=== PATIENT | female | born 1980 | race Caucasian/White ===

== ENCOUNTER 2018-07-30 03:10 | Inpatient (IN) | payer OTHER ==
[~2018-07-30] VITALS: Ht 167.6 cm; Wt 113.9 kg
[2018-07-30] MEDS ORDERED: LR 1,000 ML IV SCH ×2 (03:42→21:46)
[2018-07-30] MEDS ORDERED: LR 500 ML IV ONE ×2 (03:42→15:34)
[2018-07-30] MEDS ORDERED: NALBUPHINE HCL 10 MG/ML AMP IVP PRN ×3 (03:45→22:45)
[2018-07-30 04:29] LABS: BASOPHILS % (AUTO) 0.2 % (0.0-2.0); EOSINOPHILS % (AUTO) 0.2 % (0.0-4.0); HEMATOCRIT 35.5 % (36-48); HEMOGLOBIN 11.8 g/dL (12.0-16.0); LYMPHOCYTES % (AUTO) 9.1 % (20.5-51.5); MEAN CORPUSCULAR HEMOGLOBIN 28 pg (27-31); MEAN CORPUSCULAR HGB CONC 33 % (32-36); MEAN CORPUSCULAR VOLUME 83 fL (79.0-98.0); MONOCYTES # (AUTO) 0.6 K/uL (0.0-1.0); MONOCYTES % (AUTO) 5.6 % (1.7-9.3); NEUTROPHILS # (AUTO) 9.2 K/uL (1.8-7.7); NEUTROPHILS % (AUTO) 84.9 % (40.0-70.0); PLATELET COUNT (AUTO) 158 K/uL (130-430); RED BLOOD CELL COUNT(AUTO) 4.26 MIL/uL (4.2-6.2); WHITE BLOOD COUNT (AUTO) 10.8 K/uL (4.8-10.8)
[2018-07-30] MEDS ORDERED: OXYTOCIN/0.9 % SODIUM CHLORIDE 1,000 ML IV SCH ×2 (07:37→08:15)
[2018-07-30] MEDS ORDERED: OXYTOCIN/0.9 % SODIUM CHLORIDE 1,000 ML IV ONE (08:09)
[2018-07-30] MEDS ORDERED: fentaNYL CITRATE/PF 100 MCG/2 ML AMP ONE ×2 (10:30→22:50)
[2018-07-30] MEDS ORDERED: ROPIVACAINE 0.2% 100 ML ONE (10:31)
[2018-07-30] MEDS ORDERED: TERBUTALINE SULFATE 1 MG/ML VIAL ONE (13:51)
[2018-07-30] MEDS ORDERED: FENT2mCg/mL-ROPIVA0.2%/NS EPID 100 ML EP SCH (15:45)
[2018-07-30] MEDS ORDERED: CEFAZOLIN 2 GM IVPB PREMIX 50 ML IV ONE (21:15)
[2018-07-30] MEDS ORDERED: ANUSOL 1 EA SUPP.RECT (PREPARATION H) RC PRN (22:00)
[2018-07-30] MEDS ORDERED: OXYCODONE/ACETAMINOPHEN 5-325 TABLET PO PRN (22:00)
[2018-07-30] MEDS ORDERED: MEPERIDINE HCL/PF 50 MG/ML AMP IVP PRN (22:00)
[2018-07-30] MEDS ORDERED: LANOLIN 7 GM OINT. TP PRN (22:00)
[2018-07-30] MEDS ORDERED: RHO(D) IMMUNE GLOBULIN/MALTOSE 1500 UNITS/1.3 ML (WINHRO) IM PRN (22:00)
[2018-07-30] MEDS ORDERED: BISACODYL 10 MG/SUPPOSITORY RC PRN (22:00)
[2018-07-30] MEDS ORDERED: MEASLES,MUMPS&RUBELLA VACC/PF 12500 UNIT/0.5 ML VIAL SUBQ PRN (22:00)
[2018-07-30 22:40] VITALS: BP_SYST 128
[2018-07-30] MEDS ORDERED: ONDANSETRON HCL 4 MG/2 ML VIAL IVP PRN (22:45)
[2018-07-30] MEDS ORDERED: KETOROLAC TROMETHAMINE 60 MG/2 ML VIAL IM PRN (22:45)
[2018-07-30] MEDS ORDERED: MORPHINE SULFATE 10MG/10ML PF AMP EP SCH (22:45)
[2018-07-30] MEDS ORDERED: NALOXONE HCL 0.4 MG/ML AMP (NARCAN) IVP PRN ×2 (22:45)
[2018-07-30] MEDS ORDERED: DIPHENHYDRAMINE INJ 50 MG/ML VIAL IVP PRN (22:45)
[2018-07-30] MEDS ORDERED: fentaNYL CITRATE/PF 100 MCG/2 ML AMP IVP PRN ×2 (22:45)
[2018-07-31] MEDS: CEFAZOLIN 1 GM IVPB PREMIX 50 ML IV SCH ×3 (04:00→16:08)
[2018-07-31] MEDS: SIMETHICONE 80 MG TAB.CHEW PO PRN ×2 (12:25→17:54)
[2018-07-31] MEDS: IBUPROFEN 800 MG TABLET PO PRN ×3 (12:26→23:39)
[2018-07-31] MEDS: SENNOSIDES/DOCUSATE SODIUM 1 TAB TABLET(SENOKOT-S) PO PRN ×2 (12:27→17:54)
[2018-07-31] MEDS: DOCUSATE SODIUM 100 MG CAPSULE PO PRN (17:53)
[2018-07-31] MEDS ORDERED: MORPHINE SULFATE 10MG/10ML PF AMP EP ONE (21:50)
[2018-07-31] MEDS ORDERED: LIDOCAINE 2%, 20 ML MDV INJ ONE (21:50)
[2018-07-31] MEDS ORDERED: MIDAZOLAM HCL 5 MG/5 ML VIAL IVP ONE (21:50)
[2018-07-31] MEDS ORDERED: OXYTOCIN 10 UNIT/ML VIAL IM ONE (21:50)
[2018-07-31] MEDS ORDERED: KETOROLAC TROMETHAMINE 30 MG VIAL IVP ONE (21:50)
[2018-07-31] MEDS ORDERED: WATER FOR IRRIGATION,STERILE 1,000 ML IRRIG.SOLN IR ONE (21:50)
[2018-07-31] MEDS ORDERED: LR 1,000 ML IV.SOLN IV ONE (21:50)
[2018-08-01] MEDS: IBUPROFEN 800 MG TABLET PO PRN ×2 (06:19→12:14)
[2018-08-01] MEDS: DOCUSATE SODIUM 100 MG CAPSULE PO PRN ×2 (06:20→12:14)
== END 2018-08-01 13:50 | disposition home or self-care (01) | DRG 788 ==
LOC: SPU 03:10
PROVIDERS: ADMIT Specialist; ATTEND Specialist
PROC: 10D00Z1 Extraction of Products of Conception, Low, Open Approach (ICD-10-PCS; principal; 2018-07-30 21:30)
DX: O33.9 Maternal care for disproportion, unspecified (principal); Z37.0 Single live birth; O99.52 Diseases of the respiratory system complicating childbirth; J45.909 Unspecified asthma, uncomplicated; O62.1 Secondary uterine inertia; Z3A.40 40 weeks gestation of pregnancy; O75.89 Other specified complications of labor and delivery; O76 Abnormality in fetal heart rate and rhythm complicating labor and delivery
CPT/HCPCS: 36415; 85025; 86886; 86900; 86901; 94760; A4618; J0690; J1885; J2001; J2250; J2274; J2300; J2590; J2795; J3010; J3105; J7120